=== PATIENT | male | born 1955 | race Caucasian/White ===

== ENCOUNTER 2016-07-19 23:01 | Emergency (ER) | payer OTHER ==
--- NOTE | 2016-07-20 07:47 | RAD ---
Exam: Two-view soft tissue neck COMPARISON: None INDICATION: Trauma to throat. FINDINGS: AP and lateral views of the soft tissues the neck were obtained. No subcutaneous gas or radiopaque foreign body is identified. There is no prevertebral soft tissue swelling. Sagittal alignment of the spine is maintained. Moderate degenerative disc disease is noted at C6-7. IMPRESSION: No acute findings within the soft tissues of the neck.
== END 2016-07-20 00:12 | disposition home or self-care (01) ==
LOC: ED 23:01
DX: S19.9XXA Unspecified injury of neck, initial encounter (principal); W50.0XXA Accidental hit or strike by another person, initial encounter; Y93.67 Activity, basketball; Y92.310 Basketball court as the place of occurrence of the external cause